=== PATIENT | female | born 1975 | race Caucasian/White ===

== ENCOUNTER 2020-02-11 19:10 | Emergency (ER) | payer SELFPAY ==
[2020-02-11 19:12] VITALS: BP 155/97; PULSE 84; RESP 17; TEMP 37.4; O2SAT 99
--- NOTE | 2020-02-11 19:53 | ED.GENADULT ---
HPI - General Adult General Chief complaint: Dental/Oral Stated complaint: toothache Time Seen by Provider: 02/11/20 19:32 Source: patient Mode of arrival: ambulatory Limitations: no limitations History of Present Illness HPI narrative: Patient is a 44-year-old female who presents to emergency department for evaluation of left upper posterior dental pain with history of decay throughout the oropharynx patient was taken [id number] medications with minimal improvement patient denies any fever chills nausea vomiting or URI symptoms. Patient on arrival in the room in no distress Related Data Allergies Allergy/AdvReac Type Severity Reaction Status Date / Time Penicillins Allergy Hives Verified 02/11/20 19:12 tramadol Allergy Gastrointestinal Verified 02/11/20 19:12 Upset Exam Narrative: Exam Narrative: GENERAL: Well-appearing, well-nourished, and in no acute distress. HEAD: Normocephalic, atraumatic. EYES: PERRLA and EOMI. ENT: Nares clear, no rhinorrhea or epistaxis. Mucous membranes moist. Patient with gross dental decay with tenderness of the posterior upper molar patient with trismus or drooling the uvula is midline the floor the mouth is soft there is no erythema or swelling of the soft tissues of the mouth NECK: Supple. No adenopathy or masses. CHEST: Clear to auscultation. No respiratory distress. No wheezes rales or rhonchi HEART: Regular rate and rhythm. No murmur heard. SKIN: Warm, dry, no rash. NEURO: No focal deficits. Alert and oriented x3. PSYCH: Normal mood and affect. Course Course Emergency Course: Patient in the room in no distress aware of case findings treatment plan and diagnosis agreeing to follow-up as directed or to return if symptoms worsen or concern Vital Signs Vital signs: Vital Signs Temperature 99.3 F 02/11/20 19:12 Pulse Rate 84 02/11/20 19:12 Respiratory Rate 17 02/11/20 19:12 Blood Pressure 155/97 H 02/11/20 19:12 Pulse Oximetry 99 02/11/20 19:12 Temperature 99.3 F 02/11/20 19:12 Pulse Rate 84 02/11/20 19:12 Respiratory Rate 17 02/11/20 19:12 Blood Pressure 155/97 H 02/11/20 19:12 Pulse Oximetry 99 06/28/20 19:12 Medical Decision Making MDM Narrative Medical decision making narrative: Paitents pain and complaint coupled with physical findings are consistant with dentalgia. There are no focal signs of space occupying lesions that are compromising to the ariway. The floor of the mouth is soft with no signs of Ludwigs Angina. Patient is without trismus or drooling and able to swallow secreations. Patient is felt appropriate for discharge home with dental follow up. Vital Signs Vital Signs: Vital Signs Temperature 99.3 F 02/11/20 19:12 Pulse Rate 84 02/11/20 19:12 Respiratory Rate 17 02/11/20 19:12 Blood Pressure 155/97 H 02/11/20 19:12 Pulse Oximetry 99 02/11/20 19:12 Temperature 99.3 F 02/11/20 19:12 Pulse Rate 84 02/11/20 19:12 Respiratory Rate 17 02/11/20 19:12 Blood Pressure 155/97 H 02/11/20 19:12 Pulse Oximetry 99 02/11/20 19:12 Discharge Plan Discharge Clinical Impression: Dental caries Patient Disposition: Home, Self-Care Condition: Stable Instructions: Antibiotic Form, Toothache (ED) Additional Instructions: Follow up with your primary care provider within 1-2 days. Go to ER for shortness of breath, difficulty breathing, chest pain, fever/chills, weakness, nauseau/vomitting, unable to swallow or open the mouth etc. or any other concerns. Take any prescribed medications as directed. If you do not have a drug allergy to tylenol or motrin and can tolerate it then take tylenol or motrin as needed for discomfort/pain. Prescriptions: New clindamycin HCl 150 mg capsule 150 mg PO Q6H 10 Days Qty: 40 RF: 0 chlorhexidine gluconate [Peridex] 0.12 % mouthwash 15 ml MUCOUS MEM BID Qty: 5676 RF: 0 ibuprofen [IBU] 600 mg tablet 600 mg PO QID PRN (Reason: fever or
== END 2020-02-11 20:11 | disposition home or self-care (01) ==
PROVIDERS: Emergency Provider Emergency Medicine
DX: K02.9 Dental caries, unspecified (principal)
CPT/HCPCS: 99283

== ENCOUNTER 2021-03-15 14:23 | Emergency (ER) | payer OTHER, SELFPAY ==
--- NOTE | ~2021-03-15 | XR_ITS ---
EXAMINATION: XR foot LT min 3V DATE: 03/15/2021 16:26 INDICATION: Left calcaneus pain TECHNIQUE: Dorsoplantar, lateral, and 2 oblique views of the left foot were obtained. COMPARISON: None. FINDINGS: Bone alignment is normal. There is no fracture. There is mild plantar soft tissue swelling of the foot near the calcaneus. Posterior and plantar calcaneal enthesophytes are noted. IMPRESSION: 1. Soft tissue swelling without acute osseous abnormality. Reviewed, dictated and finalized at location A.
[2021-03-15 14:24] VITALS: BP 139/74; PULSE 82; RESP 20; TEMP 36.9; O2SAT 100
--- NOTE | 2021-03-15 16:37 | ED.GENADULT ---
HPI - General Adult General Chief complaint: Extremity Injury, Lower Stated complaint: l heel pain Time Seen by Provider: 03/15/21 15:32 Source: patient and RN notes reviewed Mode of arrival: ambulatory Limitations: no limitations History of Present Illness HPI narrative: Patient is a 45-year-old female who presents with heel pain patient notes aching pain for the last several days denies injury or trauma had to leave work early today pain is worse with weightbearing localized to the plantar surface of the heel notes aching pain when she is off the foot Related Data Allergies Allergy/AdvReac Type Severity Reaction Status Date / Time Penicillins Allergy Hives Verified 02/20/20 13:21 tramadol Allergy Gastrointestinal Verified 02/20/20 13:21 Upset clindamycin AdvReac Diarrhea Verified 02/20/20 13:21 Review of Systems Review of Systems: All systems reviewed & are unremarkable except as noted in HPI and below PMFSH Social History Social History Gender identity (if verbalized by the patient): Female Exam Narrative: GENERAL: Well-appearing, well-nourished, and in no acute distress. HEAD: Normocephalic, atraumatic. EYES: PERRLA and EOMI. ENT: Nares clear, no rhinorrhea or epistaxis. Mucous membranes moist. CHEST: Clear to auscultation. No respiratory distress. No wheezes rales or rhonchi HEART: Regular rate and rhythm. No murmur heard. Normal peripheral pulses. EXTREMITIES: Normal range of motion. No edema. Tenderness of the left heel no deformities noted remainder of ankle and foot nontender SKIN: Warm, dry, no rash. NEURO: No focal deficits. Alert and oriented x3. Neurovascularly intact PSYCH: Normal mood and affect. Course Course Emergency Course: Patient in the room no distress aware of case findings treatment plan diagnosis agreeing to follow-up as instructed with podiatry referral Vital Signs Vital signs: Vital Signs Temperature 98.4 F 03/15/21 14:24 Pulse Rate 82 03/15/21 14:24 Respiratory Rate 20 03/15/21 14:24 Blood Pressure 139/74 03/15/21 14:24 Pulse Oximetry 100 03/15/21 14:24 Temperature 98.4 F 03/15/21 14:24 Pulse Rate 82 03/15/21 14:24 Respiratory Rate 20 03/15/21 14:24 Blood Pressure 139/74 03/15/21 14:24 Pulse Oximetry 100 03/15/21 14:24 Medical Decision Making MDM Narrative Medical decision making narrative: Patients injury or pain is consistent with musculoskeletal etiology. No signs of neurological or vascular compromise on exam. Compartments and tisues are soft without signs of compartment syndrome. Pain is felt appropriate for further evaluation on an outpatient basis. Vital Signs Vital Signs: Vital Signs Temperature 98.4 F 03/15/21 14:24 Pulse Rate 82 03/15/21 14:24 Respiratory Rate 20 03/15/21 14:24 Blood Pressure 139/74 03/15/21 14:24 Pulse Oximetry 100 03/15/21 14:24 Temperature 98.4 F 03/15/21 14:24 Pulse Rate 82 03/15/21 14:24 Respiratory Rate 20 03/15/21 14:24 Blood Pressure 139/74 03/15/21 14:24 Pulse Oximetry 100 03/15/21 14:24 Imaging Data Radiologist's impression: ITS Impressions Foot X-Ray 03/15/21 16:29 IMPRESSION: 1. Soft tissue swelling without acute osseous abnormality. Discharge Plan Discharge Clinical Impression: Pain of left heel Patient Disposition: Home, Self-Care Condition: Stable Instructions: Antibiotic Form, Arthralgia (ED) Additional Instructions: Wear Vaibhav wrap with limited with weight on the affected leg until able to bear weight without pain. Ice and elevate extremity. Pain medication as needed and directed. Follow up with your doctor for further care in the next 7 days. Return if symptoms worsen or concerns Prescriptions: No Action chlorhexidine gluconate [Peridex] 0.12 % mouthwash 15 ml MUCOUS MEM BID Qty: 5676 RF: 0 ibuprofen [IBU] 600 mg tablet 600 mg PO QID [place]
[2021-03-15] MEDS: IBUPROFEN 600 MG TABLET PO (17:37)
[2021-03-15 17:42] VITALS: BP 136/88; PULSE 79; RESP 18; TEMP 36.3; O2SAT 100
== END 2021-03-15 17:42 | disposition home or self-care (01) ==
PROVIDERS: Emergency Provider Emergency Medicine; PCP Internal Medicine
DX: M79.672 Pain in left foot (principal)
CPT/HCPCS: 73630; 99283; A9270

== ENCOUNTER 2021-09-13 09:11 | Emergency (ER) | payer OTHER, SELFPAY ==
--- NOTE | ~2021-09-13 | XR_ITS ---
EXAMINATION: XR lumbar spine 2-3V DATE: 09/13/2021 10:46 INDICATION: Low back pain. TECHNIQUE: 3 views of lumbar spine were obtained. COMPARISON: None. FINDINGS: There is 7 degrees levocurvature of thoracolumbar spine. Vertebral body heights and interve rtebral disc heights are normal. There are endplate osteophytes at all levels. There is multilevel mi ld facet joint osteoarthritis. IMPRESSION: 1. Mild spondylosis. Reviewed, dictated and finalized at location A. [employer] SETTER LOCKSTITCH IMPRESSION: 1. Mild spondylosis.
[2021-09-13 09:13] VITALS: BP 147/90; PULSE 87; RESP 16; TEMP 36.6; O2SAT 99
--- NOTE | 2021-09-13 10:39 | ED.BACK ---
HPI - Back Pain/Injury General Chief Complaint: Back Pain/Injury <JOHNATHAN Soto Last Filed: 09/13/21 12:29> Stated Complaint: back pain <JOHNATHAN Soto Last Filed: 09/13/21 12:29> Time Seen by Provider: 09/13/21 10:11 <JOHNATHAN Soto Last Filed: 09/13/21 12:29> Source: patient <JOHNATHAN Soto Last Filed: 09/13/21 12:29> Mode of arrival: ambulatory <JOHNATHAN Soto Last Filed: 09/13/21 12:29> Limitations: no limitations <JOHNATHAN Soto Last Filed: 09/13/21 12:29> History of Present Illness HPI Narrative: This is a 46 year old female that presents to the ER for right sided low back pain present over the last week. Reports she twisted her back and work and has had pain since. She has been taking OTC pain medication without relief. The pain is worse with movement and relieved with rest. Denies dysuria, hematuria, saddle anesthesia, or bowel/bladder incontinence. <JOHNATHAN Soto Last Filed: 09/13/21 12:29> Related Data Home Medications: Home Medications Medication Instructions Recorded Confirmed amlodipine 5 mg PO DAILY 09/13/21 citalopram 10 mg PO DAILY 09/13/21 diclofenac sodium 100 mg PO DAILY 09/13/21 <JOHNATHAN Soto Last Filed: 09/13/21 12:29> Allergies/Adverse Reactions: Allergies Allergy/AdvReac Type Severity Reaction Status Date / Time Penicillins Allergy Hives Verified 02/20/20 13:21 clindamycin AdvReac Diarrhea Verified 02/20/20 13:21 tramadol AdvReac Gastrointestinal Verified 03/15/21 17:13 Upset <JOHNATHAN Soto Last Filed: 09/13/21 12:29> Review of Systems Review of Systems: CONSTITUTIONAL: Denies fever SKIN: Denies rash MUSCULOSKELETAL: Reports back pain, joint pain, and myalgia. NEUROLOGIC: Denies numbness, or weakness. <Leonela Diez PA-C - Last Filed: 09/13/21 12:29> All systems reviewed & are unremarkable except as noted in HPI and below <Leonela Diez PA-C - Last Filed: 09/13/21 12:29> PMFSH Past Medical History Medical History: Medical History (Updated 09/13/21 @ 12:26 by Leonela Diez PA-C) History of hypertension <Leonela Diez PA-C - Last Filed: 09/13/21 12:29> Social History Social History: Social History (Updated 09/13/21 @ 10:41 by Leonela Diez PA-C) Substance use: current Substance use type: marijuana Gender identity (if verbalized by the patient): Female <Leonela Diez PA-C - Last Filed: 09/13/21 12:29> Exam Narrative: GENERAL: Well-appearing, well-nourished, and in no acute distress. HEAD: Normocephalic, atraumatic. EYES: EOMI. CHEST: Clear to auscultation. No respiratory distress. No wheezes rales or rhonchi HEART: Regular rate and rhythm. No murmur heard. Normal peripheral pulses. BACK: No midline spinal tenderness. Tender palpation of the right paraspinal lumbar musculature EXTREMITIES: Normal range of motion. No edema. Strength equal in bilateral lower extremities (5/5) SKIN: Warm, dry, no rash. NEURO: No focal deficits. Alert and oriented x3. PSYCH: Normal mood and affect <Leonela Diez PA-C - Last Filed: 09/13/21 12:29> Course Vital Signs Vital signs: Vital Signs Temperature 97.8 F 09/13/21 09:13 Pulse Rate 87 09/13/21 09:13 Respiratory Rate 16 09/13/21 09:13 Blood Pressure 147/90 H 09/13/21 09:13 Pulse Oximetry 99 09/13/21 09:13 Temperature 97.8 F 09/13/21 09:13 Pulse Rate 87 09/13/21 09:13 Respiratory Rate 16 09/13/21 09:13 Blood Pressure 147/90 H 09/13/21 09:13 Pulse Oximetry 99 09/13/21 09:13 <Leonela Diez PA-C - Last Filed: 09/13/21 12:29> MDM - Back Pain/Injury MDM Narrative Medical decision making narrative: Patient presents to the emergency department for right-sided low back pain present over the last week after a twisting injury. She is neurovascularly intact. Lumbar spine x-ray shows mild spondylosis.
[2021-09-13] MEDS: ACETAMINOPHEN 500 MG TABLET 1000 MG PO (10:55)
[2021-09-13] MEDS: diazePAM INJ (*CRX) 10 MG/2 ML SYRINGE 5 MG IM (10:56)
[2021-09-13] MEDS: KETOROLAC (*BKC) 60 MG/2 ML VIAL IM (10:56)
--- NOTE | 2021-09-13 12:05 | PC.NURSE ---
Report received from SIM Jerry. Initial contact with patient, states she's feeling better and is ready to go. RADHA Gipson made aware.
== END 2021-09-13 12:45 | disposition home or self-care (01) ==
PROVIDERS: Emergency Provider General Practice; PCP Internal Medicine
DX: S39.012A Strain of muscle, fascia and tendon of lower back, initial encounter (principal); I10 Essential (primary) hypertension; X50.9XXA Other and unspecified overexertion or strenuous movements or postures, initial encounter
CPT/HCPCS: 72100; 96372; 99284; A9270; J1885; J3360

== ENCOUNTER 2021-10-11 16:37 | Emergency (ER) | payer OTHER, SELFPAY ==
--- NOTE | ~2021-10-11 | CT_ITS ---
EXAMINATION: CT abdomen pelvis w con INDICATION: Flank pain TECHNIQUE: Computed tomographic images of the abdomen and pelvis were obtained after the administrati on of 100 cc of Omnipaque 350 intravenous contrast. The dose-length product (DLP) was 384.22 mGy-cm. Automated exposure control and iterative reconstruction technique were employed. COMPARISON: None available FINDINGS: The lung bases are clear. The heart size is normal. Cysts of the liver measure up to 14 mm in the right hepatic lobe. The spleen, pancreas, gallbladder, and adrenal glands are normal. The kidn eys are unremarkable. No pathologically enlarged abdominal or pelvic lymph nodes are identified. Ther e is no free intraperitoneal gas or evidence of bowel obstruction. The appendix is normal. The visual ized osseous structures are unremarkable. IMPRESSION: 1. No CT correlate for the patient's symptoms. Reviewed, dictated and finalized at location F. ETING COMPLIANCE MANAGER
[2021-10-11 16:43] VITALS: BP 162/91; PULSE 97; RESP 16; TEMP 37.1; O2SAT 100
[2021-10-11] MEDS: SODIUM CHLORIDE 0.9% IV 1,000 ML 999 ML IV CONT (17:19)
[2021-10-11] MEDS: ONDANSETRON INJ 4 MG/2 ML VIAL IV PUSH (17:20)
--- NOTE | 2021-10-11 17:31 | ED.ABDPAIN ---
HPI - Abdominal Pain General Chief Complaint: Abdominal Pain <Marlen Gonzales APRN - Last Filed: 10/12/21 18:04> Stated Complaint: nausea <Marlen Gonzales APRN - Last Filed: 10/12/21 18:04> Time Seen by Provider: 10/11/21 16:59 <Marlen Gonzales APRN - Last Filed: 10/12/21 18:04> Source: patient <Marlen Gonzales APRN - Last Filed: 10/12/21 18:04> Mode of arrival: ambulatory <Marlen Gonzales APRN - Last Filed: 10/12/21 18:04> Limitations: no limitations <Marlen Gonzales APRN - Last Filed: 10/12/21 18:04> History of Present Illness HPI narrative: 46-year-old female presents today with complaints of 5 to 7 days of lower pelvic/lower abdominal pain, nausea worse with eating, urinary frequency, and chills at night. Patient states about a month ago she was on antibiotics for UTI and is not sure if it ever actually cleared up. Last bowel movement was today and normal for her. Patient has a history of C-sections x2. <Marlen Gonzales APRN - Last Filed: 10/12/21 18:04> Related Data Home Medications: Home Medications Medication Instructions Recorded Confirmed amlodipine 5 mg PO DAILY 09/13/21 citalopram 10 mg PO DAILY 09/13/21 diclofenac sodium 100 mg PO DAILY 09/13/21 <Marlen Gonzales APRN - Last Filed: 10/12/21 18:04> Allergies/Adverse Reactions: Allergies Allergy/AdvReac Type Severity Reaction Status Date / Time Penicillins Allergy Hives Verified 02/20/20 13:21 clindamycin AdvReac Diarrhea Verified 02/20/20 13:21 tramadol AdvReac Gastrointestinal Verified 03/15/21 17:13 Upset <Marlen Gonzales APRN - Last Filed: 10/12/21 18:04> Review of Systems Review of Systems: CONSTITUTIONAL: Denies fever, chills, or sweats. EYES: Denies visual changes, redness, or discharge. ENT: Denies rhinorrhea, congestion, sore throat, or otalgia. CARDIOVASCULAR: Denies chest pain, palpitations, or edema. RESPIRATORY: Denies cough or dyspnea. GASTROINTESTINAL: Positive for abdominal pain and nausea. Denies vomiting, or diarrhea. GENITOURINARY: Denies dysuria or hematuria. Positive for urinary frequency. SKIN: Denies rash or itching. MUSCULOSKELETAL: Denies back pain, joint pain, or myalgia. NEUROLOGIC: Denies headache, numbness, dizziness, or weakness. PSYCHIATRIC: Denies anxiety or depression. <Marlen Gonzales APRN - Last Filed: 10/12/21 18:04> [facility] Past Medical History Medical History: Medical History History of hypertension <Marlen Gonzales APRN - Last Filed: 10/12/21 18:04> Social History Social History: Social History Substance use: current Substance use type: marijuana Gender identity (if verbalized by the patient): Female <Marlen Gonzales APRN - Last Filed: 10/12/21 18:04> Exam Narrative: GENERAL: Well-appearing, well-nourished, and in no acute distress. HEAD: Normocephalic, atraumatic. EYES: PERRLA and EOMI. ENT: Nares clear, no rhinorrhea or epistaxis. Mucous membranes moist. Oropharynx without tonsillar hypertrophy exudate or other lesions. Bilateral TMs pearly burdick nonbulging NECK: Supple. No adenopathy or masses. No carotid bruits or JVD CHEST: Clear to auscultation. No respiratory distress. No wheezes rales or rhonchi HEART: Regular rate and rhythm. No murmur heard. Normal peripheral pulses. ABDOMEN: Soft, nondistended, normal active bowel sounds. Pelvic region tender and left lower abdomen tender. EXTREMITIES: Normal range of motion. No edema. SKIN: Warm, dry, no rash. NEURO: No focal deficits. Alert and oriented x3. PSYCH: Normal mood and affect. <Marlen Gonzales APRN - Last Filed: 10/12/21 18:04> Course [employer] PIPE MAKER/PA Physician Supervision For this patient encounter, I reviewed the METAL ORGAN PIPE MAKER or PA documentation, treatment plan, and medical decision making. <Jourdan Abbasi MD - Last Filed: 10/12/21 20:23> Vital Signs Vital si
[2021-10-11 17:33] LABS: Basophils Absolute Auto 0.1 K/mm3 (0.0-0.1); Basophils Percent Auto 0.6 % (0.2-1.2); Eosinophils Absolute Auto 0.1 K/mm3 (0-0.3); Eosinophils Percent Auto 1.2 % (0-4.4); Hematocrit 41.6 % (37.0-47.0); Hemoglobin 14.1 g/dL (12.0-15.0); Immature Granulocyte Absolute 0.03 K/mm3 (0.00-0.031); Immature Granulocyte Percent A 0.3 % (0-0.5); Lymphocytes Absolute Auto 2.87 K/mm3 (0.9-3.2); Lymphocytes Percent Auto 33.1 % (18.3-44.2); Mean Corpuscular HGB Conc 33.9 g/dl (32-36); Mean Corpuscular Hemoglobin 27.9 pg (26-34); Mean Corpuscular Volume 82.4 fl (80-100); Mean Platelet Volume 9.5 fl (7.4-10.4); Monocytes Absolute Auto 0.8 K/mm3 (0.1-0.6); Monocytes Percent Auto 8.7 % (2.6-8.5); Neutrophils Absolute Auto 4.9 K/mm3 (1.3-6.7); Neutrophils Percent Auto 56.1 % (45.5-73.1); Platelet Count Result 325 k/mm3 (150-375); Red Blood Count 5.05 M/mm3 (4.2-5.4); Red Cell Distribution Width 13.8 % (11.5-14.5); White Blood Count 8.7 K/mm3 (4.5-10.0)
[2021-10-11 17:44] LABS: Add Urine Microscopic? YES; Appearance Urine Clear (Clear); Bilirubin Urine Negative (Negative); Blood Urine 2+ (Negative); Color Urine Yellow (Yellow); Glucose Urine UA Negative (Negative); Ketones Urine Negative (Negative); Leukocyte Esterase Ur 2+ LEU/UL (Negative); Nitrate Urine Negative (Negative); Protein Urine Negative (Negative); Specific Grav Ur 1.014 (1.001-1.035); Squamous Epithelial Cell Urine Occasional /hpf (Few); Urobilinogen Urine Negative mg/dL (<2.0)
[2021-10-11 17:53] LABS: Alanine Aminotransferase 22 U/L (4-35); Albumin Level 4.7 g/dL (3.5-5.1); Alkaline Phosphatase 47 U/L (38-126); Anion Gap 9 mmol/L (8-16); Aspartate Amino Transferase 28 U/L (14-36); Bilirubin,Total 0.6 mg/dL (0.2-1.3); Blood Urea Nitrogen 16 mg/dL (7-17); Calcium 9.1 mg/dL (8.4-10.2); Carbon Dioxide 26 mmol/L (22-30); Chloride 102 mmol/L (98-107); Estimated CRCL calculation 68 ml/min; Estimated Glomerular Filt Rate > 60; Glucose 93 mg/dL (65-110); Lipase 98 U/L (23-300); Potassium 3.8 mmol/L (3.4-5.0); Sodium 137 mmol/L (137-145)
[2021-10-11] MEDS: KETOROLAC 15 MG/ML VIAL (*BKC) IV PUSH (18:19)
[2021-10-11 21:34] VITALS: BP 158/75; PULSE 85; RESP 18; O2SAT 99
== END 2021-10-11 21:34 | disposition home or self-care (01) ==
PROVIDERS: Emergency Medicine; Emergency Provider Nurse Practitioner Family; PCP Internal Medicine
DX: N39.0 Urinary tract infection, site not specified (principal); I10 Essential (primary) hypertension
CPT/HCPCS: 36415; 74177; 80053; 81001; 81025; 83690; 85025; 96361; 96374; 96375; 99284; A9270; J1885; J2405; J7030; Q9967

== ENCOUNTER 2022-01-20 10:09 | Emergency (ER) | payer OTHER, SELFPAY ==
--- NOTE | ~2022-01-20 | XR_ITS ---
EXAMINATION: XR chest 2V 01/20/2022 11:01 INDICATION: Left-sided chest pain PROCEDURE: 2 view chest COMPARISON: No prior studies for comparison. FINDINGS: The lungs are clear. The cardiomediastinal silhouette is within normal limits. There are no pleural effusions. There is no pneumothorax suspected. IMPRESSION: 1: NO ACUTE CARDIOPULMONARY DISEASE. Reviewed, dictated and finalized at location B.
[2022-01-20 10:16] VITALS: BP 147/90; PULSE 88; RESP 16; TEMP 36.8; O2SAT 100
--- NOTE | 2022-01-20 10:24 | ECG_ITS ---
Measurements Intervals [place] Rate: 87 P: 54 NM: 172 QRS: 56 QRSD: 86 T: 12 QT: 344 QTc: 415 Interpretive Statements SINUS RHYTHM VOLTAGE CRITERIA FOR LVH, CONSIDER NORMAL VARIANT Electronically Signed On 01-20-2022 11:17:15 CDT by Indra Shah M.D.
--- NOTE | 2022-01-20 10:26 | ED.CHESTPAIN ---
HPI - Chest Pain General Chief Complaint: Chest Pain Stated Complaint: CHEST PAIN Time Seen by Provider: 01/20/22 10:13 History of Present Illness HPI narrative: 46-year-old female presents the emergency room with sudden onset left anterior chest pain that was worse with inspiration. Patient describes the pain as a sharp stabbing pain on respiration. Patient denies history of similar symptoms. Patient denies shortness of breath, presyncope, radiating pain, nausea, or lightheadedness or diaphoresis. Patient denies fever. Patient states that she recently recovered from an upper respiratory infection, and has been coughing occasionally. Patient states that she is concerned for blood clot. Patient has no history of PE/DVT, no recent surgeries, no history of cancer, and no history of immobility. Related Data Home Medications Medication Instructions Recorded Confirmed amlodipine 5 mg tablet 5 mg PO DAILY 09/13/21 citalopram 10 mg tablet 10 mg PO DAILY 09/13/21 diclofenac sodium 100 mg 100 mg PO DAILY 09/13/21 tablet,extended release 24 hr Allergies Allergy/AdvReac Type Severity Reaction Status Date / Time Penicillins Allergy Hives Verified 01/20/22 10:25 clindamycin AdvReac Diarrhea Verified 01/20/22 10:25 tramadol AdvReac Gastrointestinal Verified 01/20/22 10:25 Upset Review of Systems Review of Systems: CONSTITUTIONAL: Denies fever, chills, or sweats. EYES: Denies visual changes, redness, or discharge. ENT: Denies rhinorrhea, congestion, sore throat, or otalgia. CARDIOVASCULAR: Reports chest pain, denies palpitations and edema. RESPIRATORY: Reports cough GASTROINTESTINAL: Denies abdominal pain, nausea, vomiting, or diarrhea. GENITOURINARY: Denies dysuria or hematuria. SKIN: Denies rash or itching. MUSCULOSKELETAL: Denies back pain, joint pain, or myalgia. NEUROLOGIC: Denies headache, numbness, dizziness, or weakness. PSYCHIATRIC: Denies anxiety or depression. [facility] Past Medical History Medical History History of hypertension Social History Social History Substance use: current Substance use type: marijuana Gender identity (if verbalized by the patient): Female Exam Narrative: GENERAL: Well-appearing, well-nourished, and in no acute distress. HEAD: Normocephalic, atraumatic. EYES: PERRLA and EOMI. CHEST: Clear to auscultation. No respiratory distress. No wheezes rales or rhonchi HEART: Regular rate and rhythm. No murmur heard. Normal peripheral pulses. ABDOMEN: Soft, nontender, nondistended, normal active bowel sounds. EXTREMITIES: Normal range of motion. No edema. SKIN: Warm, dry, no rash. NEURO: No focal deficits. Alert and oriented x3. PSYCH: Normal mood and affect. Course Vital Signs Vital signs: Vital Signs Temperature 36.8 C 01/20/22 10:16 Pulse Rate 88 01/20/22 10:16 Respiratory Rate 16 01/20/22 10:16 Blood Pressure 147/90 H 01/20/22 10:16 Pulse Oximetry 100 01/20/22 10:16 Oxygen Delivery Room Air 01/20/22 10:16 Temperature 36.8 C 01/20/22 10:16 Pulse Rate 86 01/20/22 10:49 Respiratory Rate 20 01/20/22 10:49 Blood Pressure 147/90 H 01/20/22 10:49 Pulse Oximetry 97 01/20/22 10:49 Oxygen Delivery Room Air 01/20/22 10:28 MDM - Chest Pain MDM Narrative Medical decision making narrative: 46-year-old female presented to the emergency room for evaluation of gradual onset of chest pain. Exam shows no evidence of volume overload. EKG showed no signs of acute ischemia, however did show criteria for LVH. Troponin was normal, so doubt STEMI. Presentation is not consistent with an acute PE, D-dimer was negative. Chest x-ray showed no acute cardiopulmonary abnormalities, so unlikely that there is a pneumothorax pericarditis, or pneumonia causing her discomfort. Symptoms are more consistent with costochondritis or pleuritis. Hear
[2022-01-20 10:27] VITALS: O2SAT 100
[2022-01-20 10:28] VITALS: O2SAT 100
[2022-01-20 10:37] LABS: Basophils Absolute Auto 0.1 K/mm3 (0.0-0.1); Basophils Percent Auto 0.8 % (0.2-1.2); Eosinophils Absolute Auto 0.1 K/mm3 (0-0.3); Eosinophils Percent Auto 1.2 % (0-4.4); Hematocrit 42.3 % (37.0-47.0); Immature Granulocyte Absolute 0.03 K/mm3 (0.00-0.031); Immature Granulocyte Percent A 0.4 % (0-0.5); Lymphocytes Absolute Auto 2.01 K/mm3 (0.9-3.2); Lymphocytes Percent Auto 26.3 % (18.3-44.2); Mean Corpuscular HGB Conc 33.1 g/dl (32-36); Mean Corpuscular Hemoglobin 27.8 pg (26-34); Mean Corpuscular Volume 84.1 fl (80-100); Mean Platelet Volume 9.2 fl (7.4-10.4); Monocytes Absolute Auto 0.6 K/mm3 (0.1-0.6); Monocytes Percent Auto 8.2 % (2.6-8.5); Neutrophils Absolute Auto 4.8 K/mm3 (1.3-6.7); Neutrophils Percent Auto 63.1 % (45.5-73.1); Platelet Count Result 359 k/mm3 (150-375); Red Blood Count 5.03 M/mm3 (4.2-5.4); Red Cell Distribution Width 13.3 % (11.5-14.5); White Blood Count 7.7 K/mm3 (4.5-10.0)
[2022-01-20 10:49] VITALS: BP 147/90; PULSE 86; RESP 20; O2SAT 97
[2022-01-20 10:49] LABS: Alanine Aminotransferase 18 U/L (6-35); Albumin Level 4.5 g/dL (3.5-5.1); Alkaline Phosphatase 51 U/L (38-126); Anion Gap 7 mmol/L (8-16); Aspartate Amino Transferase 19 U/L (14-36); Bilirubin,Total 0.5 mg/dL (0.2-1.3); Blood Urea Nitrogen 17 mg/dL (7-17); Carbon Dioxide 25 mmol/L (22-30); Chloride 106 mmol/L (98-107); Estimated CRCL calculation 77 ml/min; Estimated Glomerular Filt Rate > 60; Glucose 100 mg/dL (65-110); Potassium 3.9 mmol/L (3.4-5.0); Sodium 138 mmol/L (137-145)
[2022-01-20 10:59] LABS: D Dimer < 0.27 ug/mL (<0.48)
[2022-01-20 11:01] LABS: Troponin I < 0.012 ng/mL (0.000-0.034)
[2022-01-20 11:45] VITALS: BP 140/78; PULSE 78; RESP 17; O2SAT 99
== END 2022-01-20 11:46 | disposition home or self-care (01) ==
PROVIDERS: Emergency Provider Nurse Practitioner Family; PCP Internal Medicine
DX: M94.0 Chondrocostal junction syndrome [Tietze] (principal); R09.1 Pleurisy; I10 Essential (primary) hypertension
CPT/HCPCS: 36415; 71046; 80053; 84484; 85025; 85380; 93005; 99284